=== PATIENT | female | born 1930 | race Caucasian/White ===

== ENCOUNTER 2021-06-18 16:15 | Emergency (ER) | payer MEDICARE ==
[~2021-06-18] VITALS: Ht 149.9 cm; Wt 50.0 kg
[2021-06-18 16:30] VITALS: BP 118/56
--- NOTE | 2021-06-18 17:41 | PHYS DOC ---
Past Medical History Additional Past Medical Histor: RA ([facility],CHARITY Santiago CUSTOMER SUCCESS DIRECTOR) Past Surgical History: No Surgical History [facility] Smoking Status: Never Smoker Alcohol Use: None ([facility]) General Adult EDM: Chief Complaint: DIARRHEA HPI: HPI: Patient is a 89 year old female who presents with diarrhea for the last week once a Covid test. She states her doctor told her to come to the emergency room for Covid test and had some blood work done to check her electrolytes. Patient states she wants no blood work and no other test except for Covid test. Patient denies abdominal pain, nausea, vomiting, constipation, bloating, fever, cough, dizziness, headache, chest pain, shortness of breath, numbness or tingling, focal weakness. ([facility] SUCCESS DIRECT[facility]) Review of Systems: Review of Systems: Constitutional: Denies fever or chills. [] Eyes: Denies change in visual acuity. [] HENT: Denies nasal congestion or sore throat. [] Respiratory: Denies cough or shortness of breath. [] Cardiovascular: Denies chest pain or edema. [] GI: Denies abdominal pain, nausea, vomiting, bloody stools or +diarrhea. [] : Denies dysuria. [] Musculoskeletal: Denies back pain or joint pain. [] Integument: Denies rash. [] Neurologic: Denies headache, focal weakness or sensory changes. [] Endocrine: Denies polyuria or polydipsia. [] Lymphatic: Denies swollen glands. [] Psychiatric: Denies depression or anxiety. [] ([facility],CHARITY M CUSTOMER SUCCESS DIRECTOR) Heart Score: C/O Chest Pain: No ([facility]) Allergies: Allergies: Allergies Coded Allergies Type Severity Reaction Last Updated Verified No Known Drug Allergies 06/18/21 No ([facility]) Physical Exam: PE: Constitutional: Well developed, well nourished, no acute distress, non-toxic appearance. [] HENT: Normocephalic, atraumatic, bilateral external ears normal, oropharynx moist, no oral exudates, nose normal. [] Eyes: PERRLA, EOMI, conjunctiva normal, no discharge. [] Neck: Normal range of motion, no tenderness, supple, no stridor. [] Cardiovascular:Heart rate regular rhythm, no murmur [] Lungs & Thorax: Bilateral breath sounds clear to auscultation [] Abdomen: Bowel sounds normal, soft, no tenderness, no masses, no pulsatile masses. [] Skin: Warm, dry, no erythema, no rash. [] Back: No tenderness, no CVA tenderness. [] Extremities: No tenderness, no cyanosis, no clubbing, ROM intact, no edema. [] Neurologic: Alert and oriented X 3, normal motor function, normal sensory function, no focal deficits noted. [] Psychologic: Affect normal, judgement normal, mood normal. [] Normal physical exam (CHARITY NICHOLE APRN) Current Patient Data: Vital Signs: Vital Signs Date Time Temp Pulse Resp B/P (MAP) Pulse Ox O2 Delivery O2 Flow Rate FiO2 06/18/21 16:30 98.9 92 18 118/56 (76) 97 Room Air 98.9 (CHARITY NICHOLE APRN) EKG: EKG: [] (CHARITY NICHOLE APRN) Radiology/Procedures: Radiology/Procedures: [] (CHARITY NICHOLE APRN) Course & Med Decision Making: Course & Med Decision Making Pertinent Labs and Imaging studies reviewed. (See chart for details) See HPI. Alert and oriented x4. Speaks in full clear sentences. Abdomen is soft and nontender. Skin pink warm and dry. Afebrile. Patient is refusing all blood work, EKG. Patient states that she cannot drive in the dark and does not want to stay for her Covid results. Patient left AMA. Explained patient that the EKG is needed for electrolytes and if her electrolytes are off to draw for heart rhythm and possibly put her into a deadly heart rhythm causing or disability. Patient states she does not want any of that and use any of that. She states she only wants a Covid test. [] (CHARITY NICHOLE APRN) Dragon Disclaimer: Dragon Disclaimer: This electronic medical record was generated, in whole or in part, using a voice recognition dictation system. (CHARITY NICHOLE APRN) Departure Departure Impression: Primary Impression: Diarrhea Qualified Codes: R19.7 - Diarrhea, unspecified Additional Impression: Person under investigation for COVID-19 Disposition: LEFT AGAINST MEDICAL ADVICE Condition: STABLE Referrals: JACKEILNE LONGO (PCP) Attending Signature Attending Signature I have reviewed the PA/INSPECTOR FIREARMS's note and plan of care. I was available for consultation as needed during the patient's visit in the emergency department. I agree with the clinical impression, plan, and disposition. (KELL CANALES DO) CHARITY NICHOLE APRN Jun 18, 2021 17:41 KELL CANALES DO Jun 19, 2021 06:51
== END 2021-06-18 17:35 | disposition left against medical advice (07) ==
LOC: ER 16:15
DX: R19.7 Diarrhea, unspecified (principal); Z20.822 Contact with and (suspected) exposure to COVID-19; M06.9 Rheumatoid arthritis, unspecified
CPT/HCPCS: 87426; 99283; U0003; U0005